=== PATIENT | male | born 1985 | race Caucasian/White ===

== ENCOUNTER 2022-02-07 17:05 | Emergency (ER) | payer SELFPAY ==
--- NOTE | ~2022-02-07 | XR_ITS ---
XR toe 1st RT min 2V DATE: 02/07/2022 17:47 INDICATION: Injury today. He'll laceration. TECHNIQUE: 3 views of right great toe COMPARISON: None FINDINGS: There is a comminuted virtually nondisplaced fracture of the base and shaft of the proximal phalanx of the great toe, with intra-articular extension at the first metatarsophalangeal joint. A small fracture is suggested at the dorsal base of the distal phalanx. No other fracture or dislocation of the right great toe is noted. Normal alignment at the first metat arsophalangeal and interphalangeal joints. IMPRESSION: Comminuted intra-articular fracture of the base and shaft proximal phalanx Probable small dorsal fracture of the base of the distal phalanx Reviewed, dictated and finalized at location A.
[2022-02-07 17:07] VITALS: BP 147/86; PULSE 108; RESP 18; TEMP 37; O2SAT 98
[2022-02-07] MEDS: HYDROcodone/acetaminophen (*CRX) 5-325 MG TABLET 1 TAB PO (20:13)
[2022-02-07] MEDS: LIDOCAINE HCL 1% PF 30 ML VIAL 20 ML INFILTRATE (20:14)
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
[2022-02-07] MEDS: TETANUS,DIPHTHERIA,AC PERTUSSIS ADULT (0.5 ML) BOOSTRIX IM (22:05)
[2022-02-07 22:22] VITALS: BP 140/75; PULSE 85; RESP 14; O2SAT 99
== END 2022-02-07 22:24 | disposition home or self-care (01) ==
PROVIDERS: Emergency Provider Emergency Medicine
DX: S91.111A Laceration without foreign body of right great toe without damage to nail, initial encounter (principal); Z23 Encounter for immunization; F17.200 Nicotine dependence, unspecified, uncomplicated; W22.8XXA Striking against or struck by other objects, initial encounter; S92.411A Displaced fracture of proximal phalanx of right great toe, initial encounter for closed fracture
CPT/HCPCS: 12001; 73660; 90471; 90715; 99284; A9270